=== PATIENT | female | born 1980 | race Caucasian/White ===

== ENCOUNTER 2022-06-08 16:07 | Inpatient (IN) | payer BC ==
[2022-06-08 18:00] LABS: BASO % 0.3 % (0-2.0); EOS % 0.3 % (0-4.5); HEMATOCRIT 40.2 % (32.4-45.2); HEMOGLOBIN 13.8 GM/dL (10.7-15.3); LYMPH % 16.8 % (8-40); MCH 32.1 pg (25.7-33.7); MCHC 34.5 g/dl (32.0-36.0); MEAN PLT VOLUME 7.5 fl (7.5-11.1); MONO % 6.5 % (3.8-10.2); NEUT % 76.1 % (42.8-82.8); PLATELET COUNT 250 10^3/uL (134-434); RBC 4.32 M/mm3 (3.60-5.2); RDW 13.1 % (11.6-15.6); WHITE BLOOD COUNT 9.8 K/mm3 (4.0-10.0)
[2022-06-08 18:06] LABS: INR 1.06 (0.83-1.09); PROTHROMBIN TIME (PATIENT) 12.2 SEC (9.7-13.0)
[2022-06-08 18:09] LABS: ACTIVATED PTT 34.8 SECONDS (25.2-36.5)
[2022-06-08 18:18] LABS: ALBUMIN 4.2 g/dl (3.4-5.0); CALCIUM 9.5 mg/dL (8.5-10.1)
[2022-06-08 18:21] LABS: CREATININE 0.6 mg/dL (0.55-1.3)
[2022-06-08 18:23] LABS: BILIRUBIN,TOTAL 0.3 mg/dL (0.2-1); TOT PROT 7.7 g/dl (6.4-8.2)
[2022-06-08] MEDS ORDERED: SCOPOLAMINE HYDROBROMIDE 1 PATCH PATCH.TD72 ONE (20:38)
[2022-06-08] MEDS ORDERED: PROPOFOL 20 ML ONE (20:41)
[2022-06-08] MEDS ORDERED: KETOROLAC TROMETHAMINE 30 MG/1 ML VIAL ONE (20:41)
[2022-06-08] MEDS ORDERED: LIDOCAINE HCL 2% 100 MG/5 ML DISP.SYRIN ONE (20:41)
[2022-06-08] MEDS ORDERED: DEXAMETHASONE SOD PHOSPHATE 4 MG/1 ML VIAL ONE (20:41)
[2022-06-08] MEDS ORDERED: MIDAZOLAM HCL 2 MG/2 ML SINGLE DOSE VIAL ONE (20:42)
[2022-06-08] MEDS ORDERED: SUCCINYLCHOLINE CHLORIDE 200 MG/10 ML SYRINGE ONE (20:42)
[2022-06-08] MEDS ORDERED: ROCURONIUM BROMIDE 50 MG/5 ML SYRINGE ONE (20:42)
[2022-06-08] MEDS ORDERED: ceFAZolin SODIUM 1 GM VIAL ONE (21:09)
[2022-06-08] MEDS ORDERED: ceFAZolin SODIUM 1 GM VIAL IVPB ONE (21:10)
[2022-06-08] MEDS ORDERED: BUPIVACAINE HCL/PF 0.5% (5 MG/ML) 30 ML VIAL IJ ONE (21:20)
[2022-06-08] MEDS ORDERED: PROMETHAZINE HCL 25 MG/1 ML VIAL IVPUSH PRN (21:57)
[2022-06-08] MEDS ORDERED: ONDANSETRON 4 MG/2 ML VIAL IVPUSH PRN (21:57)
[2022-06-08] MEDS ORDERED: ACETAMINOPHEN 1000 MG/100 ML BAG IVPB ONE (21:58)
[2022-06-08] MEDS ORDERED: LACTATED RINGERS SOLUTION 1,000 ML IV SCH (22:00)
[2022-06-08] MEDS ORDERED: ONDANSETRON 4 MG/2 ML VIAL ONE (23:23)
[2022-06-08] MEDS ORDERED: ACETAMINOPHEN INJECTION 100 ML IVPB ONE (23:36)
[2022-06-09 01:38] VITALS: BMI 24.5
[2022-06-09] MEDS ORDERED: oxyCODONE HCL 5 MG TABLET PO PRN (03:47)
[2022-06-09] MEDS: IBUPROFEN 600 MG TABLET (FP) PO PRN ×2 (04:01→10:43)
[2022-06-09 14:46] VITALS: BP 106/48; PULSE 65; RESP 17; TEMP 97.9
== END 2022-06-09 14:19 | disposition home or self-care (01) | DRG 819 ==
LOC: JER 16:07 → JERBED 16:50 → J7W 23:43
PROVIDERS: ADMIT Obstetrics & Gynecology; ATTEND Obstetrics & Gynecology
PROC: 10D24ZZ Extraction of Products of Conception, Ectopic, Percutaneous Endoscopic Approach (ICD-10-PCS; 2022-06-08)
PROC: 0UB64ZZ Excision of Left Fallopian Tube, Percutaneous Endoscopic Approach (ICD-10-PCS; principal; 2022-06-08 21:00)
DX: O00.102 Left tubal pregnancy without intrauterine pregnancy (principal)
CPT/HCPCS: 36415; 80053; 84702; 85025; 85610; 85730; 86850; 86900; 86901; 88305-TC; 93005; 93010; 94760; 99285-25; C9803-CS; U0003; U0005